=== PATIENT | female | born 1980 | race Caucasian/White ===

== ENCOUNTER → 2018-11-23 | Day surgery (SDC) | payer OTHER ==
[~2018-11-23] MED LIST: PEPCID20 MG PO
== END | disposition home or self-care (01) ==
LOC: ADM 11-16 15:00 → AMB-ENDOS 09:13 → CIR.AMB 15:00
DX: K31.7 Polyp of stomach and duodenum (principal); K29.50 Unspecified chronic gastritis without bleeding